=== PATIENT | male | born 1990 | race Caucasian/White ===

== ENCOUNTER 2017-04-30 19:36 | Emergency (ER) | payer OTHER ==
[2017-04-30] MEDS ORDERED: Proparacaine 0.5% Opth 15 ML BOT ONE ×2 (19:44→19:51)
[2017-04-30] MEDS ORDERED: Fluorescein Opthalmic Strip ONE ×2 (19:44→19:51)
== END 2017-04-30 20:29 | disposition home or self-care (01) ==
LOC: SCSER 19:36
DX: H57.11 Ocular pain, right eye (principal); F17.290 Nicotine dependence, other tobacco product, uncomplicated
CPT/HCPCS: 99283